=== PATIENT | male | born 1955 | race Caucasian/White ===

== ENCOUNTER → 2016-04-20 | Outpatient (CLI) | payer BC ==
[~2016-04-20] MED LIST: AMOXICILLIN 8751 TAB PO; ASPIRIN 81M81 MG/TA2 PO; ASPIRIN E.C. 8181 MG PO; CALCIUM 600MG+D1 TAB PO; CALCIUM CITRAT250 MG PO; CARDI-OMEGA1000 MG PO; CO Q-1050 MG PO; COUMADIN2 MG PO; GLUCOSAMINE & C1 CAP PO; LACRI LUBE1 OIN OP; LOVENOX120 MG/0.8 SC; NIACIN500 M3 PO; NO HOME MEDICATIONS; PREDNISONE10 MG PO; ULTRAM 50MG TAB50 MG PO; VICODIN 5/5001 UDTAB PO; VITAMIN C BUFF500 MG PO; VITAMIN C500 MG PO; VITAMIN COMPLEX1 TA1 PO; VITAMIN E 400 U4001 PO; ZOCOR 10MG10 MG PO; ZOCOR10 MG PO; [UNRECOGNIZED DRUG - OTHER] PO
== END ==
LOC: COL.RAD 08:55
DX: R09.89 Other specified symptoms and signs involving the circulatory and respiratory systems (principal)

== ENCOUNTER → 2017-01-10 | Outpatient (CLI) | payer BC | LOC: COL.RAD 08:51 | DX: R06.02 Shortness of breath (principal); R07.89 Other chest pain; R05 Cough | CPT/HCPCS: Q9967 ==

== ENCOUNTER 2020-06-18 01:54 | Emergency (ER) | payer OTHER ==
[~2020-06-18] VITALS: Ht 177.8 cm; Wt 77.3 kg
[2020-06-18 02:11] VITALS: TEMP 98.4
[2020-06-18 02:57] LABS: BASO # 0.1 (0.0-0.2); BASO % 1.1 % (0.0-2.0); EOS # 0.1 (0.0-0.7); EOS % 2.3 % (0-4.0); GRAN # 2.8 (1.4-6.5); GRAN % 49.4 % (42.2-75.2); HEMATOCRIT 38.6 % (42.0-52.0); HEMOGLOBIN 12.7 g/dl (13.5-18.0); LYMPH % 35.9 % (20.0-51.0); MEAN CELL VOLUME 96 fl (80.0-100.0); MEAN CORPUSCULAR HEMOGLOBIN 32 pg (27.0-31.0); MEAN CORPUSCULAR HGB CONC 33 g/dl (33.0-37.0); MEAN PLATELET VOLUME 10.1 fl (7.4-10.4); MONO # 0.6 (0.1-0.6); MONO % 11.1 % (1.7-9.3); PLATELET COUNT 239 K/mm3 (130-400); RED BLOOD COUNT 4.03 M/mm3 (4.20-5.60)
[2020-06-18 03:06] LABS: ALANINE AMINOTRANSFERASE 18 U/L (4-49); ALBUMIN 3.6 gm/dL (3.5-5.0); ALKALINE PHOSPHATASE 42 U/L (50-136); ANION GAP 9 mmol/L (7-16); AST,SGOT 25 U/L (15-37); BILIRUBIN,TOTAL 0.2 mg/dL (0.0-1.0); BLOOD UREA NITROGEN 20 mg/dL (9-20); CALCIUM 8.9 mg/dL (8.4-10.2); CARBON DIOXIDE 26 mmol/L (22-30); CHLORIDE 105 mmol/L (98-107); CREATININE, serum 1.03 (0.66-1.25); GLUCOSE 95 mg/dL (74-106); LIPASE 97 U/L (23-300); POTASSIUM 3.5 mmol/L (3.4-5.0); SODIUM 140 mmol/L (137-145); TOTAL PROTEIN 6.3 gm/dL (6.4-8.2)
[2020-06-18 03:18] LABS: TROPONIN-I < 0.012 ng/mL (0.000-0.035)
[2020-06-18 04:28] VITALS: BP 143/85; PULSE 55
== END 2020-06-18 04:28 | disposition home or self-care (01) ==
LOC: COL.ER 01:54
PROVIDERS: Emergency Medicine
DX: R10.10 Upper abdominal pain, unspecified (principal); I10 Essential (primary) hypertension; E78.5 Hyperlipidemia, unspecified; Z79.52 Long term (current) use of systemic steroids; Z79.82 Long term (current) use of aspirin

== ENCOUNTER → 2021-12-28 | Outpatient (CLI) | payer OTHER | LOC: COL.RAD 12:30 | DX: R13.10 Dysphagia, unspecified (principal) ==